=== PATIENT | female | born 1960 | race Caucasian/White ===

== ENCOUNTER → 2021-10-09 14:13 | Outpatient (CLI) | payer OTHER, SELFPAY ==
--- NOTE | ~2021-10-09 | MMUS_ITS ---
EXAMINATION: MM diag az implant BI w jake, US breast LT limited HISTORY: Mastodynia TECHNIQUE: Additional 3-D tomosynthesis images of both breasts were performed and synthetic 2-D image s were generated. CAD analysis was submitted and interpreted. High resolution left Limited subareolar breast ultrasound was performed. COMPARISON: 10/06/2018 bilateral implant screening mammogram 08/20/2014 bilateral implant screening mammogram FINDINGS: MAMMOGRAPHIC FINDINGS: There is a new circumscribed 3 mm opacity in the inferomedial subareolar area of the left breast. Otherwise no significant new or developing density is evident since 08/20/2014. ULTRASOUND: 9:00 subareolar area: There is a 2.9 mm sonolucency consistent with cyst, corresponding to the 3 mm s ubareolar mammographic finding. An approximately 2.6 mm cyst is noted in the subareolar area 1:00 position. There is an approximately 3 x 6 mm sonolucency at 12:00 subareolar area. No suspicious mass or shadowing is detected. IMPRESSION: 1. Benign findings 2. Routine annual mammographic screening is recommended BI-RADS Category 2: Benign finding(s). Reviewed, dictated and finalized at location A. [facility] NURSE STAFF IMPRESSION: 1. Benign findings 2. Routine annual mammographic screening is recommended BI-RADS Category 2: Benign finding(s).
== END ==
PROVIDERS: PCP Family Medicine; Visit Provider Nurse Practitioner
DX: N64.4 Mastodynia (principal)
CPT/HCPCS: 76642; 77062; 77066; G0279

== ENCOUNTER → 2021-12-12 10:20 | Outpatient (CLI) | payer OTHER, SELFPAY ==
--- NOTE | ~2021-12-12 | DEXA_ITS ---
Bone Density Report Name: TRACIE ARMENDARIZ Age: 61 Sex: Female Ethnicity: White Date of : 1960 Indication: osteopenia; postmenopausal Referring Provider: AUBREY, LES Study: Bone densitometry was performed. Exam Date: December 12, 2021 Accession number: [id number] Bone Density: Region BMD T-score Z-score Classification AP Spine (L1-L4) 0.982 -0.6 0.8 Normal Femoral Neck (Left) 0.607 -2.2 -0.9 Osteopenia Total Hip (Left) 0.727 -1.8 -0.8 Osteopenia Femoral Neck (Right) 0.661 -1.7 -0.4 Osteopenia Total Hip (Right) 0.783 -1.3 -0.4 Osteopenia Total Hip Mean 0.755 -1.6 -0.6 Osteopenia World Health Organization criteria for BMD impression classify patients as: Normal (T-score at or above -1.0), Osteopenia (T-score between -1.0 and -2.5), or Osteoporosis (T-score at or below -2.5). 10-year Fracture Risk(1): Major Osteoporotic Fracture 9.7% Hip Fracture 1.3% Reported Risk Factors: [place] (), Neck BMD=0.607, BMI=29.8 (1) FRAX(R) Version 3.08. Fracture probability calculated for an untreated patient. Fracture probability may be lower if the patient has received treatment. Previous Exams: Region Exam Age BMD T-score BMD Change BMD Change Date g/cm2 vs Baseline vs Previous AP Spine(L1-L4) 12/12/2021 61 0.982 -0.6 -0.017 -0.017 10/06/2018 57 0.999 -0.4 Total Hip(Left) 12/12/2021 61 0.727 -1.8 -0.071* -0.071* 10/06/2018 57 0.797 -1.2 Total Hip(Right) 12/12/2021 61 0.783 -1.3 -0.066* -0.066* 10/06/2018 57 0.849 -0.8 *Denotes significance at 95% confidence level, LSC for AP Spine = 0.022 g/cm2, LSC for Total Hip = 0.027 g/cm2 Clinical Information Provided by Patient: Has used the following medications: Vitamin D Patient maximum height was 66 Menopause Age: 51 No regular weight bearing exercise Drinks caffeinated beverages Onset of menses at age 14 Number of children 0 Impression: The patient has low bone mass, based on the Left Femoral Neck T-score. The patient has an estimated ten-year risk of hip fracture of 1.3% and an estimated ten-year risk of major fracture of 9.7%, based on the WHO FRAX algorithm. The BMD for the Total Hip(Left) decreased, changing by -0.071 since the last DXA exam. The BMD for the Total Hip(Right) decreased, changing by -0.066 since the last DXA exam. Discussion: BONE DENSITY IS LOW AT ONE OR MORE SKELETAL SITES. This patie
== END ==
PROVIDERS: PCP Family Medicine; Visit Provider Nurse Practitioner
DX: Z78.0 Asymptomatic menopausal state (principal); M85.89 Other specified disorders of bone density and structure, multiple sites
CPT/HCPCS: 77080

== ENCOUNTER → 2023-11-05 09:54 | Outpatient (CLI) | payer OTHER, SELFPAY ==
--- NOTE | ~2023-11-05 | MM_ITS ---
EXAMINATION: MM screening [facility] BI w jake HISTORY: Screening mammogram TECHNIQUE: Craniocaudal and mediolateral oblique 3-D tomosynthesis images were obtained and synthetic 2-D images were generated. CAD analysis was submitted and interpreted. COMPARISON: 10/09/2021, 10/06/2018, 08/19/2014 BREAST PARENCHYMAL COMPOSITION: There are scattered areas of fibroglandular density. FINDINGS: There is been interval removal of the bilateral breast implants. No suspicious mass, calcif ication, or architectural distortion are identified in either breast to suggest malignancy. There has been no suspicious interval change. IMPRESSION: 1. No mammographic evidence of malignancy. 2. Recommend routine screening mammography in one year. BI-RADS Category 1: Negative Reviewed, dictated and finalized at location A. [facility] FINANCIAL SERVICES SPECIALIST
== END ==
PROVIDERS: PCP Family Medicine; Visit Provider Nurse Practitioner
DX: Z12.31 Encounter for screening mammogram for malignant neoplasm of breast (principal)
CPT/HCPCS: 77063; 77067

== ENCOUNTER 2024-03-13 10:55 | Outpatient (CLI) | payer OTHER, SELFPAY ==
--- NOTE | ~2024-03-13 | DEXA_ITS ---
Bone Density Report Name: TRACIE ARMENDARIZ Age: 63 Sex: Female Ethnicity: White Date of : 1960 Indication: osteopenia; postmenopausal Referring Provider: AUBREY, LES Study: Bone densitometry was performed. Exam Date: March 13, 2024 Accession number: [id number] Bone Density: Region BMD T-score Z-score Classification AP Spine (L1, L2, L3) 0.982 -0.3 1.2 Normal Femoral Neck (Left) 0.613 -2.1 -0.7 Osteopenia Total Hip (Left) 0.736 -1.7 -0.6 Osteopenia Femoral Neck (Right) 0.668 -1.6 -0.2 Osteopenia Total Hip (Right) 0.793 -1.2 -0.2 Osteopenia Total Hip Mean 0.765 -1.5 -0.4 Osteopenia World Health Organization criteria for BMD impression classify patients as: Normal (T-score at or above -1.0), Osteopenia (T-score between -1.0 and -2.5), or Osteoporosis (T-score at or below -2.5). 10-year Fracture Risk(1): Major Osteoporotic Fracture 9.9% Hip Fracture 1.3% Reported Risk Factors: [place] (), Neck BMD=0.613, BMI=30.2 (1) FRAX(R) Version 3.08. Fracture probability calculated for an untreated patient. Fracture probability may be lower if the patient has received treatment. Previous Exams: Region Exam Age BMD T-score BMD Change BMD Change Date g/cm2 vs Baseline vs Previous AP Spine(L1, L2, L3) 03/13/2024 63 0.982 -0.3 0.003 0.019 12/12/2021 61 0.963 -0.5 -0.016 -0.016 10/06/2018 57 0.979 -0.4 Total Hip(Left) 03/13/2024 63 0.736 -1.7 -0.061* 0.010 12/12/2021 61 0.727 -1.8 -0.071* -0.071* 10/06/2018 57 0.797 -1.2 Total Hip(Right) 03/13/2024 63 0.793 -1.2 -0.057* 0.010 12/12/2021 61 0.783 -1.3 -0.066* -0.066* 10/06/2018 57 0.849 -0.8 *Denotes significance at 95% confidence level, LSC for AP Spine = 0.022 g/cm2, LSC for Total Hip = 0.027 g/cm2 Clinical Information Provided by Patient: Has used the following medications: Vitamin D Patient maximum height was 67 Menopause Age: 51 No regular weight bearing exercise Drinks caffeinated beverages Onset of menses at age 14 Number of children 0 Impression: The patient has low bone mass, based on the Left Femoral Neck T-score. The patient has an estimated ten-year risk of hip fracture of 1.3% and an estimated ten-year risk of major fracture of 9.9%, based on the WHO FRAX algorithm. No significant bone loss was observed. Gabrielle
== END 2024-03-13 10:56 ==
LOC: MICIMG 10:56
PROVIDERS: PCP Family Medicine; Visit Provider Nurse Practitioner
DX: M85.89 Other specified disorders of bone density and structure, multiple sites (principal)
CPT/HCPCS: 77080

== ENCOUNTER 2025-07-23 18:03 | Emergency (ER) | payer OTHER, SELFPAY ==
[2025-07-23 18:12] VITALS: BP 160/83; PULSE 101; RESP 16; TEMP 37.3; O2SAT 99
--- NOTE | 2025-07-23 18:22 | ED_ITS ---
HPI - Wound/Laceration General Chief Complaint: Wound/Laceration Stated Complaint: finger cut Time Seen by Provider: 07/23/25 18:24 Source: patient, RN notes reviewed and old records reviewed Mode of arrival: ambulatory Limitations: no limitations History of Present Illness HPI narrative: 64-year-old female presents to the [facility] with complaints of a laceration to her finger Patient states that she was cutting the hands off of corn when she sliced her finger. Last Tdap approximately 6 months ago Onset (ago): hour(s) (1) Related Data Allergies Allergy/AdvReac Type Severity Reaction Status Date / Time No Known Allergies Allergy Unverified 07/23/25 18:34 Review of Systems Review of Systems: All systems reviewed & are unremarkable except as noted in HPI and below Constitutional: Constitutional: Reports no additional constitutional complaints ENT: Reports system reviewed and no additional complaints, except as documented Cardiovascular: Cardiovascular: Reports no additional cardiovascular complaints, Denies chest pain and Denies dyspnea Respiratory: Respiratory: Reports no additional respiratory complaints, Denies chest congestion, Denies cough and Denies dyspnea Musculoskeletal: Musculoskeletal: Reports no additional musculoskeletal complaints Integumentary/Breasts: Skin/Breast: Reports as per HPI and Reports wounds PMFSH Family History Family History Father Family history of malignant neoplasm of brain Other Family history of malignant neoplasm of breast Social History Social History Smoking status: Never smoker Alcohol intake: current Comments At the time of my signature, I reviewed and agree with the nursing past medical, surgical, social, and family history. There is no relevant family history pertinent to the patient complaint. Exam Const: General: cooperative, healthy appearing, comfortable, no acute distress, well developed, alert and well nourished Nutritional Appearance: well nourished Orientation/consciousness: patient oriented x3 Limitations: no limitations HENMT: Head: normal to inspection Eyes: General: appearance normal, both eyes and all related structures Alignment and Position: alignment normal Neck: Neck: normal visual inspection, full ROM, no lymphadenopathy and no meningeal signs Chest: Chest palpation & inspection: normal inspection of the chest Resp: Effort & Inspection: normal respiratory effort and able to speak in complete sentences Cardio: Rate: regular rate Skin: General skin exam: normal color and no rashes or lesions noted Wounds: wounds noted Other: U shaped flap, left index finger Neuro: General: patient oriented x3, gait normal, moves all extremities and no meningeal signs Cognition (Neuro): normal cognition Speech: normal speech Gait exam (Neuro): Normal gait present Extrem: General: normal to inspection, full ROM, capillary refill normal and normal gait Psych: Appearance: grossly normal and well kempt Mental Status: mental status grossly normal Speech and movement: Normal speech and movement present and Clear speech present Affect: normal affect Attitude: cooperative Course Course Level of Care: Express Care Visit Vital Signs Vital signs: Vital Signs Temperature 99.1 F 07/23/25 18:12 Pulse Rate 101 H 07/23/25 18:12 Respiratory Rate 16 07/23/25 18:12 Blood Pressure 160/83 H 07/23/25 18:12 Pulse Oximetry 99 07/23/25 18:12 Oxygen Delivery Room Air 07/23/25 18:12 Temperature 99.1 F 07/23/25 18:12 Pulse Rate 101 H 07/23/25 18:12 Respiratory Rate 16 07/23/25 18:12 Blood Pressure 160/83 H 07/23/25 18:12 Pulse Oximetry 99 07/23/25 18:12 Oxygen Delivery Room Air 07/23/25 18:12 Reviewed Procedures Laceration Laceration 1: Date: 07/23/25 Time: 19:00 Site: hand Side (If applicable): left Size (cm): 6 (3 cm flap) Description: flap Depth: simple, single layer Local Anesthetic: lidocaine 1% Amount of anesthesia used (mL): 5 Pre-repair: wound explored and irrigated (300) ====== Skin Level ====== Skin layer closed with: nylon Size (cm): 5-0 Number of sutures: 9 Technique: simple, interrupted ====== Subcutaneous Layer ====== ====== Muscle Layer ====== ====== Tendon Layer ====== Dressing: Procedure explained, verbal consent obtained. A cleaned base of finger, digital performed. Three hundred males of irrigation of saline. Nine sutures placed, patient tolerated well MDM - Wound/Laceration MDM Narrative Medical decision making narrative: Patient sitting comfortably in exam room. Patient is nontoxic, vitals are stable except blood pressure mildly elevated. Patient presents with laceration to the left index finger, repair done. Discussed importance of following up. Patient is appropriate for outpatient treatment with close follow-up Discharge instructions reviewed with patient, as well as provided in writing per nursing staff. The instructions also include specific and strict return/GO TO THE ER as well as f/u information. All questions have been answered, and the patient deny any further questions with discharge and discharge plan. Some parts of this dictation were generated by voice recognition software and may contain typographical and/or grammatical inaccuracies. Differential Diagnosis Differential diagnosis: Likely laceration, abscess and avulsion of skin Critical Care Time Critical Care Time Critical Care Time: No Discharge Plan Discharge Clinical Impression: Finger laceration Patient Disposition: Home Condition: Stable Instructions: Antibiotic Form, Finger Laceration (ED) Additional Instructions: Wash area twice a day with warm soapy water, pat dry. Take Tylenol per package instructions as needed for pain Rest, ice and elevate every 2-3 hours for 15-20 minutes while awake Follow-up with primary care provider in 10-14 days for suture removal Patient Language: Lithuanian Prescriptions: New cephalexin 500 mg capsule 500 mg PO Q12H Qty: 14 0RF Follow-up/Referrals: Abdiaziz,Rut Ace PA-C [Primary Care Provider, [facility]] - 2 Weeks Clinical Impression: Finger laceration Time of Disposition: 19:20
[2025-07-23] MEDS: LIDOCAINE 1% LOCAL INJ 2 ML AMPUL 6 ML INFILTRATE (18:37)
== END 2025-07-23 19:29 | disposition home or self-care (01) ==
PROVIDERS: Emergency Provider Nurse Practitioner; PCP Physician Assistant
DX: S61.211A Laceration without foreign body of left index finger without damage to nail, initial encounter (principal); W45.8XXA Other foreign body or object entering through skin, initial encounter
CPT/HCPCS: 12002; 99213; G0463; J2003